=== PATIENT | female | born 1960 | race Caucasian/White ===

== ENCOUNTER 2024-02-09 08:34 | Day surgery (SDC) | payer OTHER, SELFPAY ==
[2024-02-07 09:46] VITALS: BMI 26.6
[2024-02-09] VITALS (8 sets, daily range): BP systolic 121–148; BP diastolic 67–87; PULSE 74–113; RESP 15–17; TEMP 36.2–36.9; O2SAT 94–98; BMI 25.7
--- NOTE | 2024-02-09 | DI.RAD.S_ITS ---
PROCEDURE: XR HIP W PEL IF DONE RT 2V INDICATIONS: TOTAL RIGHT HIP ANTERIOR TECHNIQUE: 4 fluoroscopic views of the hip. COMPARISON: None. FINDINGS / IMPRESSION: 4 fluoroscopic spot images of the right hip are submitted which demonstrate right total hip arthroplasty reported under separate operative report. Fluoroscopic dose values are not delineated. No gross radiographic evidence of periprosthetic fracture. No high attenuation surgical instrument or foreign body. Dictated by: Zhao Keating M.D. on 02/09/2024 at 14:09 Approved by: Zhao Keating M.D. on 02/09/2024 at 14:15
--- NOTE | 2024-02-09 06:00 | DI.RAD.S_ITS ---
PROCEDURE: XR HIP W PEL IF DONE RT 2V INDICATIONS: MJ TECHNIQUE: AP pelvis and lateral view of the hip acquired. COMPARISON: [facility], CR, XR HIP W PEL IF DONE RT 2V, 02/09/2024, 12:59. FINDINGS: Bones: Patient is status post right hip arthroplasty, with hardware components in expected positions. The hip joint appears congruent. The visualized bony structures appear intact. Soft tissues: Overlying postoperative changes are noted. No radiographic evidence of high attenuation surgical instrument or foreign body. IMPRESSION: Expected postoperative changes status post right total hip arthroplasty without radiographic evidence of complication. Dictated by: Zhao Keating M.D. on 02/09/2024 at 14:33 Approved by: Zhao Keating M.D. on 02/09/2024 at 14:34
[2024-02-09] MEDS: MELOXICAM 7.5 MG TABLET 15 MG PO (09:30)
[2024-02-09] MEDS: ACETAMINOPHEN 325 MG TABLET 975 MG PO (09:30)
[2024-02-09] MEDS: VANCOMYCIN 1,000 MG/200 ML PIGGYBACK 200 MG IV (09:31)
[2024-02-09] MEDS: LACTATED RINGERS 1,000 ML 42 ML IV (09:32)
--- NOTE | 2024-02-09 11:20 | PM.PREOP ---
Pre-operative Note Interval Note History & Physical reviewed/Exam performed by Physician: Yes Changes to H&P: No
--- NOTE | 2024-02-09 11:35 | P.OP_ITS ---
Operative Date/Time/Diagnoses Date of procedure: 02/09/24 Time of procedure: 11:45 Pre-op diagnosis: Left hip OA Post-op diagnosis: same Procedure & Clinicians Procedure: Left total hip arthroplasty anterior approach Same procedure as scheduled: Yes Indications: The patient has had progressively worsening left hip pain with radiographic claudio ges consistent with arthritis. Non-operative management has failed and the patient has requested total hip replacement. The risks, benefits and alternatives to surgery were discussed with the patient prior to proceeding. Risks discussed included, but were not limited to, failure to relieve pain, leg length discrepancy, dislocation, stiffness, infection, nerve damage, deep venous thrombosis, pulmonary embolism, stroke, coma, heart attack, permanent paralysis and , as well as the potential need for eventual revision of the prosthetic. Surgeon: Rylee Avila Metal Miner Blasting: Rafael Tsang Anesthesia Type: General and Spinal Operative Notes Findings: Severe right hip OA, adequate bone, adequate stability Closure Type: primary Specimen(s): none sent Prosthetic devices, grafts, tissues, transplants, or devices: Avila and Nephew polar size 1, R3 size 52 acetabulum, neutral poly liner, one 6.5 mm screw, 36 x -3 Oxinium Estimated Blood Loss (mL): 250 Blood products transfused: none Procedure in detail: The patient was brought to the operating room. Patient was carefully positioned in the supine position. Time-out was performed and antibiotics were given. Anesthesia was induced. She was positioned in the on the table in order to allow hyperextension of the hip. The right lower extremity was prepped and draped in a standard sterile fashion. An anterior right hip incision was made 1 fingerbreadth lateral to the anterior superior iliac spine and extended distally towards the greater trochanter. Dissection was carried out through skin and subcutaneous tissues. Superficial hemostasis was achieved. The fascia over the tensor fascia marshal was defined and incised with a knife. Two Allis clamps were used to grasp the fascia. Tensor fascia marshal was retracted laterally. A gelpi retractor was placed. Dissection was carried out down along the neck. The circumflex vessels were carefully identified and cauterized with the Aqua Mantis. A PA was used during the procedure and was essential for intraoperative retraction and safe implantation of the components. There was good visualization of the femoral neck. A Cobra was placed superior to the neck and the gluteus fibers were carefully stripped from that superior aspect of the capsule. A 2nd retractor was placed along the inferior aspect of the neck. The rectus insertion along the capsule was partially released. A 3rd retractor that was then gently placed over the rim of the acetabulum under the rectus. Capsule was carefully incised and released from the intertrochanteric line circumferentially superior to the mid sagittal line and inferiorly to the mid sagittal line until the lesser trochanter was palpable. A tag stitch was placed both in the superior and inferior limb of the capsular insertion. Along the acetabulum capsule was also released up to the mid sagittal 12:00 position. A portion of the labrum was resected. A saw was used to perform an osteotomy at the level of the intertrochanteric line and the junction of the superior femoral neck leaving approximately 1 finger breath of residual inferior neck above the lesser trochanter. A 2nd cut was made along the femoral neck at the base of the head and a napkin ring of neck was removed. Corkscrew was placed in the femoral head and the head was removed without difficulty. Retractors were then repositioned around the acetabulum. Residual labrum was resected and additional osteophytes were removed. A reamer that was 4 mm below the templated size was placed by hand in the acetabulum and it was reamed to centralize the acetabulum. It was then reamed up to 2 under the templated size and fluoroscopy was brought in to confirm the position of the reaming and depth of reaming. I reamed 1 under the anticipated size. A trial cup was placed and noted that it was appropriately sized and fluoroscopy confirmed position and depth. The component was open and inserted without difficulty fluoroscopic imaging was used to confirm that the cup had been adequately seated and was well positioned. It was further stabilized with a single screw. Neutral poly liner was placed. The cup was tested and noted to be stable. Attention was then directed to the femur. The femur was gently hyperextended additional capsular release was performed as needed in order to allow adequate visualization of the proximal femur with elevation of the femur. Patient was placed in a hyperextended slightly adducted position with maximum external rotation. Box osteotome was used to check for any residual neck as well as sclerotic bone along the trochanter. Midway pepper was placed in the femur. Additional broaching was performed. Canal finder was used to determine the alignment of the canal and position. Size 1 broach was placed. The canal was then appropriately broached up to the templated size as long as there was adequate stability of the broach and serial advancement of the broach without excessive impingement. Specific attention was directed at avoiding varus attempting to direct the distal aspect of the broach more anteriorly and avoiding excessive anteversion. Trial reduction showed acceptable range of motion, good stability, no posterior impingement, muslim of leg length and appropriate lateral shuck. I also hyperflexed the hip and checked that there was no impingement anteriorly and there was good stability with flexion, adduction and internal rotation. Marcaine and Exparel were injected. The stem was placed without difficulty. Repeat trial reduction and x-ray showed acceptable overall position, length, and no evidence of the femoral fracture. Final head was placed. Wound was meticulously irrigated with normal saline. The hip was reduced and additional Exparel and Marcaine were injected. The capsule was closed with interrupted nonabsorbable sutures. The fascia of the tensor was closed with interrupted and running Vicryl. No drain was placed. Any tensor fascia marshal muscle that appeared to be contused or injured which was a minimal amount was carefully resected. Capsule around the tensor was injected with Exparel and Marcaine. The skin was closed with barbed stitches for the subcutaneous tissue and skin. We also used surgical glue. The wound was dressed sterilely. Brief Betadine soak was also used and was meticulously irrigated with normal saline. Patient was transferred to recovery room in satisfactory condition. Complications: none Post-operative Condition: stable Disposition: Acute Care Plan for aftercare: The patient will be maintained on a standard total hip replacement protocol with weight bearing as tolerated and anterior hip precautions. The patient will receive Aspirin and sequential compression devices for DVT prophylaxis. The patient will be discharged home when safe for the home environment.
[2024-02-09] MEDS: CEFAZOLIN 2 GM/100 ML PREMIX 100 ML IV (12:05)
[2024-02-09] MEDS: TRANEXAMIC ACID 1,000 MG VIAL 2000 MG INJ (12:10)
[2024-02-09] MEDS: BUPIVACAINE 0.25% (PF) 60 ML, EPINEPHrine 0.3 MG INJ (12:19)
[2024-02-09] MEDS: BUPIVACAINE LIPOSOME 266 MG/20 ML VIAL INJ (12:20)
--- NOTE | 2024-02-09 12:39 | SUR.OPER ---
Patient supine on padded [place] table, one arm on padded arm board at <90, other arm padded and secured with tape across patient's chest, both legs secured in padded traction boots and positioned per surgeon, padded post at patient's groin, pressure points checked and padded.
[2024-02-09] MEDS: ACETAMINOPHEN 325 MG TABLET 650 MG PO (15:30)
--- NOTE | 2024-02-09 16:57 | OT.IP.EVAL ---
Current Diagnoses Unilateral primary osteoarthritis, right hip (02/09/24) Surgery Performed Operation Date: 02/09/24 11:15 Actual Procedures p Total Hip Arthroplasty/Anterior Approach(Right) - Rylee Avila MD Past Medical History (Last Reviewed 02/09/24 @ 09:27 by Belén Overton, RN) High cholesterol Prediabetes Scoliosis Surgical History (Last Reviewed 02/09/24 @ 09:27 by Belén Overton, RN) S/P cholecystectomy S/P hysterectomy S/P tonsillectomy Status post Mohs surgery (~2020) Occupational Therapy Inpatient Evaluation/Re-Eval M1 PT/OT-IP Prior Functional Status Start: 02/09/24 15:28 Freq: NEEDED Status: Active Protocol: Document 02/09/24 17:38 [facility] (Rec: 02/09/24 17:51 [facility] [id number]) Medical Review Prior Functional Status Medical History Reviewed Yes Diet/Fluid Consistency Regular Communication WNLs Mobility and Gait I Activities of Daily Living and IADL's I Social History Household Members significant other Living Arrangements House Number of Floors (Floors) One Floor Number of Stairs To Enter/Railing? 2 platform steps without rail to enter Home Environment Standard Height Toilet,Walk in Shower Home Equipment Front Wheel Walker,Raised Toilet Seat w/Armrests,Shower Seat with Backrest Employment Status Retired M2 OT-IP Current Condition Start: 02/09/24 17:38 Freq: Status: Active Protocol: Document 02/09/24 17:38 [facility] (Rec: 02/09/24 17:51 [facility] [id number]) Occupational Therapy Current Condition Current Condition Evaluation Date 02/09/24 Treatment Diagnosis S/P R MJ Anterior Diagnosis Onset Date 02/09/24 Post Operative Precautions Anterior Hip Precautions No Hip Extension,No Hip External Rotation Weight Bearing Status Weight Bearing Status Weight Bear as Tolerated M3 OT- IP Subjective and Pain Start: 02/09/24 17:38 Freq: Status: Active Protocol: Document 02/09/24 17:38 [facility] (Rec: 02/09/24 17:51 [facility] [id number]) OT- Subjective Occupational Therapy Visit Type Type Initial Evaluation Visit Start Time 16:30 Visit Stop Time 16:57 Occupational Therapy Visit Comments Patient Comments Pt sitting on the BSC when OT and PT came in for evals. Patient/Caregiver Goals TO go home. OT Pain Assessment Pain When Pain Assessed During Mobility Pain Present Pain Present Pain Reported Location Right Hip Intensity 4 Scale Used Numeric (0 - 10) M4 OT- IP ADL's Start: 02/09/24 17:38 Freq: Status: Active Protocol: Document 02/09/24 17:38 [facility] (Rec: 02/09/24 17:51 [facility] [id number]) OT [id number] Comments OT Self-Feeding Comments Not at meal time. OT ADL-Grooming Comments OT Grooming Comments Not performed. OT ADL-Oral Care Comments Oral Care Comments Not performed. OT ADL-Dressing General Eval Lower Body Dressing Ability Moderate Assistance Comments OT Dressing Comments MODA to help trend the brief over her feet. Educated to dress her RLE first and take out last. OT ADL-Toileting General Evaluation Toileting Ability Moderate Assistance Areas Needing Assistance Manage Clothing Comments OT Toileting Comments Assist to brief management needs. Pt states not able to feel her juan are at this time for sensation and suggested to wear brief and call for her to assist her at night. OT ADL-Bathing Comments OT Bathing Comments Pt will benefit from sitting for showering needs. Educated on dressing needs while showering . M5 OT- IP IADL's Start: 02/09/24 17:38 Freq: Status: Active Protocol: Document 02/09/24 17:38 [facility] (Rec: 02/09/24 17:51 [facility] [id number]) OT-Instrumental Activities of Daily Living Home Safety Awareness Awareness of Need for Assistance at Home Decreased Awareness Home Safety Comments Pt is a little groggy but insistent on going home. M6 OT- IP Functional Cognition Start: 02/09/24 17:38 Freq: Status: Active Protocol: Document 02/09/24 17:38 [facility] (Rec: 02/09/24 17:51 [facility] [id number]) Cognitive Factors Limiting Selfcare Function Cognitive Ability Level of Alertness Alert Patient Orientation Name,Age,Birthday,Month,Date, Year,Day of Week,Place, Situation Attention Span Ability Capable of Focused Attention, Capable of Sustained Attention Ability to Follow Commands Able to Follow One Step Commands with Increased Time, Able to Follow One Step Commands with Repetition Safety Awareness Underestimates Need for Assistance Cognitive Comments Cognitive Assessment Comments Pt is a little impulsive and groggy. Pt needing cues to follow her hip precautions as just came up to the floor a couple hours ago. OT- Vision and Hearing OT- Hearing Assessment OT- Hearing Assessment WFL OT- Vision Assessment Visual Acuity WFL Visual Attentiveness WFL Occular Pursuits WFL M7 OT- IP Mobility and Balance Start: 02/09/24 17:38 Freq: Status: Active Protocol: Document 02/09/24 17:38 [facility] (Rec: 02/09/24 17:51 [facility] [id number]) OT-Transfer Assessment Sit to and From Stand Sit to and from Stand Contact Guard Assistance Transfers Transfer Ability Contact Guard Assistance Technique Transfer Destination Bedside Commode,Chair Transfer Technique Stand Step Pivot Comments Mobility Comments CGA with FWW , slightly unsteady on her RLE. OT- Balance Assessment Sitting Balance and Reactions Static Sitting Balance Ability Normal Dynamic Sitting Balance Ability Normal Standing Balance and Reactions Static Standing Balance Ability Good Dynamic Standing Balance Ability Fair M8 OT- IP Objective Assessments Start: 02/09/24 17:38 Freq: Status: Active Protocol: Document 02/09/24 17:38 [facility] (Rec: 02/09/24 17:51 [facility] [id number]) OT Gross Range of Motion Upper Extremity Range of Motion Assessment Within Functional Limits OT Strength Upper Extremity Strength Assessment Within Functional Limits M9 OT- IP Assessment and Plan Start: 02/09/24 17:38 Freq: Status: Active Protocol: Document 02/09/24 17:38 [facility] (Rec: 02/09/24 17:51 [facility] [id number]) OT Summary Assessment and Plan Potential Rehabilitation Potential Excellent Analytic Complexity at Evaluation Low Summary OT Impairments Pain,Balance,Sensation, Functional Mobility,Dressing, Toileting,Bathing,Toilet Transfers,Shower Transfers, Activity Tolerance Progress Towards Goals Progressing Toward Goals Assessment Summary Pt low complexity and main barriers are pain, still having decreased sensation in juan area, and mild decrease balance at this time and still groogy from surgery a few hours ago. Pt to go home with assist when medically stable. Goals Dressing Goal Independent Toileting Goal Independent Bathing Goal Independent Toilet Transfer Goal Independent Shower Transfer Goal Independent Days to Meet Goals 5 Frequency of Treatment Other frequency 5x/week Treatment Plan OT Treatment Plan ADL Training,Functional Mobility,Patient/Family Education,Discharge Planning Discharge Recommendations OT Discharge Recommendations Home with 13/12 Assist Available,Outpatient PT Transportation Needs at Discharge Private Vehicle
--- NOTE | 2024-02-09 17:17 | PT.IIE ---
Current Diagnoses Unilateral primary osteoarthritis, right hip (02/09/24) Surgery Performed Operation Date: 02/09/24 11:15 Actual Procedures p Total Hip Arthroplasty/Anterior Approach(Right) - Rylee Avila MD Surgical History (Last Reviewed 02/09/24 @ 09:27 by Belén Overton, RN) S/P cholecystectomy S/P hysterectomy S/P tonsillectomy Status post Mohs surgery (~2020) Medical History (Last Reviewed 02/09/24 @ 09:27 by Belén Overton, RN) High cholesterol Prediabetes Scoliosis Physical Therapy Inpatient Evaluation/Re-Eval M1 PT/OT-IP Prior Functional Status Start: 02/09/24 15:28 Freq: NEEDED Status: Active Protocol: Document 02/09/24 16:35 [facility] (Rec: 02/09/24 17:17 [facility] [id number]) Medical Review Prior Functional Status Medical History Reviewed Yes Diet/Fluid Consistency Regular Communication WNLs Mobility and Gait I Activities of Daily Living and IADL's I Social History Household Members significant other Living Arrangements House Number of Floors (Floors) One Floor Number of Stairs To Enter/Railing? 2 platform steps without rail to enter Home Environment Standard Height Toilet,Walk in Shower Home Equipment Front Wheel Walker Employment Status Retired M2 PT-IP Current Condition Start: 02/09/24 15:28 Freq: NEEDED Status: Active Protocol: Document 02/09/24 16:35 [facility] (Rec: 02/09/24 17:17 [facility] [id number]) Physical Therapy Current Condition Current Condition Evaluation Date 02/09/24 Treatment Diagnosis R anterior MJ M3 PT-IP Subjective Start: 02/09/24 15:28 Freq: NEEDED Status: Active Protocol: Document 02/09/24 16:35 [facility] (Rec: 02/09/24 17:17 [facility] [id number]) Subjective Physical Therapy Visit Type Type Initial Evaluation Visit Start Time 16:35 Visit Stop Time 16:50 Number of DIE CUT OPERATOR Visits 0 Physical Therapy Visit Comments Patient Comments Pt up on BSC upon arrival and states that she cannot feel her juan area or tell when she needs to use the restroom or not. Some ongoing mild numbness in toes and feet post -op. Therapy Pain Assessment Pain When Pain Assessed At Rest Pain Present Pain Present Pain Reported Location Right Hip Intensity 3 M4 PT-IP Mobility and Gait Start: 02/09/24 15:28 Freq: NEEDED Status: Active Protocol: Document 02/09/24 16:35 [facility] (Rec: 02/09/24 17:17 [facility] [id number]) PT-Transfer Assessment Sit to and From Stand Sit to and from Stand Contact Guard Assistance,Use of Upper Extremities Equipment Transfer Assistive Device Gait Belt,Front Wheeled Walker Orthotic/Prosthetic Devices or Brace: No Transfers Transfer Destination Chair Transfer Technique Ambulation Transfer Ability Level of Assist Contact Guard Assistance,1 Person Assistance,Use of Upper Extremities Comments Mobility Comments Pt up on BSC and agreeable to move to chair for supper with therapist assistance Gait Assessment Gait Gait Assistance Required: Contact Guard Assist Distance (Feet) 15 Able to Maintain Weight Bearing Status Yes During Gait Assistive Devices Assistive Device Gait Belt,Front Wheeled Walker Orthotic/Prosthetic Devices or Brace: No Gait Deviations General Gait Pattern Antalgic,Decreased Stride Length,Decreased Feet Clearance,Flexed Trunk,Narrow Based Gait,Step-to Gait Factors Limiting Gait Function Factors Limiting Gait Function Decreased Sensation,Decreased Strength,Incoordination, Limited Range of Motion,Pain, Poor Balance,Poor Safety Awareness Comments Gait Comments Cued pt for step-to pattern gait initially post-op since she does not have full sensation this afternoon/ evening PT-Balance Assessment Sitting Balance and Reactions Static Sitting Balance Ability Good Dynamic Sitting Balance Ability Fair Standing Balance and Reactions Static Standing Balance Ability Good Dynamic Standing Balance Ability Fair Device Used RW M5 PT-IP Objective Assessments Start: 02/09/24 15:28 Freq: NEEDED Status: Active Protocol: Document 02/09/24 16:35 [facility] (Rec: 02/09/24 17:17 [facility] [id number]) Orientation Orientation/Cognition Level of Alertness Alert Orientation Name,Age,Birthday,Month,Date, Year,Day of Week,Place, Situation Language Function Ability No Deficits Noted Safety Awareness Decreased Safety Awareness Memory Description No Deficits Noted Gross Range of Motion Upper Extremity ROM Impairments Defer to OT Lower Extremity ROM Assessment Right Impaired Impairments LLE normal Strength Lower Extremity Strength Assessment Right Impaired Comments Strength Comments LLE normal MMT, right ankle DF 4+/5 and right knee at least 3/5 with normal LAQ Coordination Assessment Gross Coordination Gross Coordination Impaired Sensation Assessment Sensation Gross Sensation Right LE Impaired,Left LE Impaired Muscle Tone Muscle Tone WNL Yes M6 PT-IP Treatment Start: 02/09/24 15:28 Freq: NEEDED Status: Active Protocol: Document 02/09/24 16:35 [facility] (Rec: 02/09/24 17:17 [facility] [id number]) Physical Therapy Treatment Exercises Exercises Ankle Pumps Education Education Provided Precautions,Weight Bearing Status,Post-Op Packet,Safety M7 PT-IP Assessment and Plan Start: 02/09/24 15:28 Freq: NEEDED Status: Active Protocol: Document 02/09/24 16:35 [facility] (Rec: 02/09/24 17:17 [facility] [id number]) PT Summary Assessment and Plan Potential Rehabilitation Potential Excellent Status of Condition at Evaluation Evolving Summary Impairments Pain,ROM,Strength,Balance, Coordination,Sensation,Bed Mobility,Transfers,Gait, Activity Tolerance Progress Towards Goals Progressing Toward Goals Assessment Summary Pt is a 63 y/o female presenting with good efforts with mobility this afternoon/ evening but con't with parestheisas juan area and inability to determine if she needs to use the rest room or not. She also reports some ongoing B foot numbness. She makes good effort with mobility and requires CGA for transfers from commode and to gait to chair. Pt is not able to perform stair training given paresthesias have not yet cleared and will assess bed mobility next treatment date as well. Goals Bed Mobility Goal Independent Transfer Goal Independent,Front Wheeled Walker Gait Goal Independent,Front Wheel Walker Gait Distance 100 Other Goals Pt will ascend and descend two plaform steps with RW and no more than CGA to allow safe home entrance. Days to Meet Goals 5 Frequency of Treatment Frequency Of Treatment Twice a Day Treatment Plan Physical Therapy Treatment Plan Bed Mobility Training,Transfer Training,Gait Training, Therapeutic Exercise,Balance Retraining,Post Op Education, Discharge Planning,Hot or Cold Pack,Neuromuscular Re-ed, Coordination Retraining,Manual Therapy Precautions Anterior Hip Precautions No Hip Extension,No Hip External Rotation Weight Bearing Status Weight Bearing Status Weight Bear as Tolerated Recommendations To Nursing Amount of Assist Needed 1 Person Assist Discharge Recommendations PT Discharge Recommendations Home with Assistance, Outpatient PT Transportation Needs at Discharge Private Vehicle
--- NOTE | 2024-02-09 18:52 | PC.NURSE ---
Reviewed d/c instructions with Pt, including no driving while taking narcotics, importance of increasing fluid intake in order to prevent constipation, and s/s of stroke. IV removed. Pt is dressed and confirmed that she has all her belongings. She will be leaving via personal vehicle with her spouse; she is sitting in the chair waiting for her spouse to arrive.
== END 2024-02-09 19:49 | disposition home or self-care (01) ==
LOC: OR 08:37 → AC 08:39
PROVIDERS: PCP Family Medicine; Referring Provider Orthopaedic Surgery; Visit Provider Orthopaedic Surgery
PROC: (CPT 27130; principal; 2024-02-09 11:15)
DX: M16.11 Unilateral primary osteoarthritis, right hip (principal); M25.751 Osteophyte, right hip
CPT/HCPCS: 27130; 73502; 76000; 82962; 97161; 97165; 97535; C1776; C9290; J0171; J0690; J1100; J2250; J2405; J2704; J3010